=== PATIENT | male | born 1970 | race Caucasian/White ===

== ENCOUNTER → 2024-05-05 | Outpatient (CLI) | payer BC ==
[~2024-05-05] MED LIST: Advil200 M1 PO; CLARITIN10 MG PO
[2024-05-05 11:28] LABS: Bun/Creatinine Ratio 20.3 (12.0-20.0); Calcium, Blood 9.5 mg/dL (8.5-10.1); Creatinine, Blood 1.28 mg/dL (0.60-1.20); Potassium, Blood 4.2 mmol/L (3.5-5.5)
== END ==
LOC: LAB SHORT 10:57 → LAB 10:57
PROVIDERS: Physician Assistant
DX: R31.9 Hematuria, unspecified (principal); M54.9 Dorsalgia, unspecified; R30.0 Dysuria
CPT/HCPCS: 80048; 87086